=== PATIENT | male | born 1995 | race Caucasian/White ===

== ENCOUNTER 2021-09-11 10:59 | Emergency (ER) | payer OTHER ==
[~2021-09-11] VITALS: Ht 170.2 cm; Wt 74.8 kg
--- NOTE | 2021-09-11 11:32 | REP ---
INDICATION: TRAUMA COMPARISON: None. TECHNIQUE: Axial noncontrast images from the skull base to the vertex with coronal reformations. This CT examination was performed using the following dose reduction techniques: Automated exposure control, adjustment of mA and/or kv according to the patient's size, and use of iterative reconstruction technique. FINDINGS: The ventricles, sulci, and cisterns are normal in position and appearance. Tamayo-white differentiation is maintained. No acute intracranial hemorrhage, mass/mass effect, pathology or trauma/injury. No evidence for acute infarction. No extra-axial fluid collection. Calvarium is intact. Significant right-sided facial trauma including elements of subcutaneous emphysema extend into the masseter space and temporomandibular joint region along with small amount of fluid in the right maxillary sinus. There is a nondisplaced fracture along the orbital floor. IMPRESSION: 1. Right-sided facial trauma. 2. No intracranial pathology or trauma/injury. <Electronically signed by Kris Cunningham > 09/11/21 [id number]
--- NOTE | 2021-09-11 11:36 | REP ---
INDICATION: TRAUMA COMPARISON: None. TECHNIQUE: Axial noncontrast images from the skull base to the thoracic inlet with coronal and sagittal re-formations This CT examination was performed using the following dose reduction techniques: Automated exposure control, adjustment of mA and/or kv according to the patient's size, and use of iterative reconstruction technique. FINDINGS: Cervical vertebral bodies are intact and demonstrate normal alignment and lordosis. There is no evidence for acute fracture/compression injury or subluxation. The posterior elements and spinous processes are intact. The spinal canal is patent. There is extensive elements of gas along the right-side of the face and neck with extension into the right parapharyngeal/retropharyngeal space surrounding multiple muscles of mastication and the sternocleidomastoid muscle extending to the level of the thoracic inlet. IMPRESSION: 1. Normal appearance to the cervical spine without evidence for acute fracture/compression injury or subluxation. 2. Extensive amounts of subcutaneous gas throughout the right-side of the face/neck consistent with trauma. <Electronically signed by Kris Cunningham > 09/11/21 [id number]
--- NOTE | 2021-09-11 11:44 | REP ---
INDICATION: TRAUMA COMPARISON: None. TECHNIQUE: Axial noncontrast images through the facial bones to include the mandible with coronal and sagittal re-formations. FINDINGS: Comminuted multipartite nondisplaced fractures are identified involving the right orbital floor and anterior wall of the right maxillary sinus. Subtle minimally displaced fractures of the right nasal bone are also identified. There is a small amount of layering hemorrhagic fluid in the right maxillary sinus. There is extensive subcutaneous emphysema in the right periorbital space extending into the extraconal aspect of the right orbit causing mild right-sided proptosis. There is also extensive subcutaneous emphysema along the right-side of the face dissecting into the right masseter space surrounding masseter muscles, surrounding the right side of the mandible with extension medially into the right parapharyngeal and retropharyngeal space as well as dissecting caudally surrounding the right sternocleidomastoid muscle into the right thoracic inlet. IMPRESSION: 1. Comminuted multipartite nondisplaced fractures involving the right orbital floor and anterior wall of the maxillary sinus. Subtle fractures of the right nasal bone are also identified. 2. Extensive amounts of subcutaneous emphysema involving the right periorbital region, right side of the face, right masseter space with extension into the right parapharyngeal/retropharyngeal space and surrounding the mandible as well as extending caudally along the right-side of the neck towards the thoracic inlet. <Electronically signed by Kris Cunningham > 09/11/21 [id number]
--- NOTE | 2021-09-11 11:59 | REP ---
INDICATION: fall, r/o pneumothorax COMPARISON: None. TECHNIQUE: Portable AP view of the chest FINDINGS: The mediastinum and cardiac silhouette are within normal limits for portable technique. The lung judge are clear without acute consolidation, effusion, or pneumothorax. Skeletal structures are intact. IMPRESSION: No acute cardiopulmonary process appreciated. <Electronically signed by Kris Cunningham > 09/11/21 [id number]
[2021-09-11] MEDS ORDERED: AUGMENTIN 875 MG TAB PO ONE (12:45)
[2021-09-11] MEDS ORDERED: KETO10TAB PO (12:58)
[2021-09-11] MEDS ORDERED: AUGM875T28 PO (12:58)
[2021-09-11] MEDS ORDERED: DERMABOND TOPICAL SKIN ADHESIVE TOP ONE ×2 (13:00→13:45)
[2021-09-11 13:45] VITALS: BP 112/79
== END 2021-09-11 14:08 | disposition home or self-care (01) ==
LOC: M ED 10:59
DX: S02.31XA Fracture of orbital floor, right side, initial encounter for closed fracture (principal); S01.81XA Laceration without foreign body of other part of head, initial encounter; W10.8XXA Fall (on) (from) other stairs and steps, initial encounter; Y92.009 Unspecified place in unspecified non-institutional (private) residence as the place of occurrence of the external cause; Y93.9 Activity, unspecified; Y99.9 Unspecified external cause status

== ENCOUNTER 2024-01-14 20:07 | Inpatient (IN) | payer OTHER ==
[~2024-01-14] VITALS: Ht 172.7 cm; Wt 94.4 kg
[~2024-01-14 20:07] MED LIST: AUGM875T28 PO; KETO10TAB PO
[2024-01-14 21:13] LABS: HEMATOCRIT 49.8 % (42.0-52.0); HEMOGLOBIN 17.3 g/dl (13.5-17.5); MEAN CORPUSCULAR HEMOGLOBIN 32.5 pg (27.0-33.0); MEAN CORPUSCULAR HGB CONC 34.7 g/dl (32.0-36.5); MEAN CORPUSCULAR VOLUME 93.4 fl (80.0-96.0); PLATELET COUNT, AUTOMATED 304 10^3/uL (150-450); RED BLOOD COUNT 5.33 10^6/uL (4.30-6.10); WHITE BLOOD COUNT 15.4 10^3/uL (4.0-10.0)
[2024-01-14 21:40] LABS: ALBUMIN 4.4 G/DL (3.2-5.2); ALKALINE PHOSPHATASE 83 U/L (46-116); ALT/SGPT 45 U/L (7.0-40); AST/SGOT 22 U/L (<34); BILIRUBIN,DIRECT 0.1 MG/DL (<0.4); BILIRUBIN,TOTAL 0.5 MG/DL (0.3-1.2); BLOOD UREA NITROGEN 20 MG/DL (9-23); CALCIUM LEVEL 9.5 MG/DL (8.5-10.1); CARBON DIOXIDE LEVEL 22 MMOL/L (20-31); CHLORIDE LEVEL 103 MMOL/L (98-107); GLOMERULAR FILTRATION RATE > 60.0 (>60); GLUCOSE, FASTING 103 MG/DL (60-100); POTASSIUM SERUM 4.2 MMOL/L (3.5-5.1); SALICYLATE LEVEL < 3.0 MG/DL (<30); SODIUM LEVEL 140 MMOL/L (136-145); TOTAL PROTEIN 7.9 G/DL (5.7-8.2)
[2024-01-14 21:43] LABS: THYROID STIMULATING HORMONE 1.268 uIU/ML (0.55-4.78)
[2024-01-14 22:02] LABS: AMPHETAMINES LEVEL URINE NEGATIVE (NEGATIVE); BARBITURATES URINE NEGATIVE (NEGATIVE); BENZODIAZEPINES URINE NEGATIVE (NEGATIVE); CANNABINOIDS URINE NEGATIVE (NEGATIVE); COCAINE METABOLITE URINE NEGATIVE (NEGATIVE); METHADONE URINE NEGATIVE (NEGATIVE); OPIATES URINE NEGATIVE (NEGATIVE); PHENCYCLIDINE URINE NEGATIVE (NEGATIVE)
[2024-01-14] MEDS ORDERED: NEOSPORIN OINT 0.9 GM PKT TOP ONE (23:15)
[2024-01-14] MEDS ORDERED: MAALOX 30 ML SUSP *UDC PO PRN (23:20)
[2024-01-14] MEDS ORDERED: ACETAMINOPHEN TAB 650MG DOSE (2X325MG) PO PRN (23:20)
[2024-01-14] MEDS ORDERED: MOM 30ML SUSPENSION UDC PO PRN (23:20)
[2024-01-14] MEDS ORDERED: IBUPROFEN 400MG TAB PO PRN (23:20)
[2024-01-14] MEDS ORDERED: HOME MED LIST COMPLETE! XX SCH (23:35)
[2024-01-15 00:02] VITALS: BP 102/67; TEMP 97.8; O2SAT 96
[2024-01-15] MEDS: traZODone 50 MG TAB PO PRN (00:09)
[2024-01-15] MEDS: diphenhydrAMINE 25MG CAP PO PRN (01:40)
[2024-01-15 06:20] VITALS: BP 127/70; TEMP 99; O2SAT 96
[2024-01-15] MEDS: SERTRALINE HCL 25 MG TABLET PO SCH (10:11)
[2024-01-15 17:07] VITALS: BP 129/88; TEMP 97.4; O2SAT 99
[2024-01-16 06:21] VITALS: BP 119/74; TEMP 97.4; O2SAT 96
[2024-01-17 06:34] VITALS: BP 114/68; TEMP 97.8; O2SAT 97
[2024-01-17] MEDS ORDERED: DIPH-435 PO (08:50)
[2024-01-17] MEDS ORDERED: SERT25TA21 PO (08:50)
[2024-01-17] MEDS ORDERED: TRAZ-252 PO (08:51)
== END 2024-01-17 11:05 | disposition home or self-care (01) | DRG 881 ==
LOC: M ED 20:07 → M ED INP 23:17 → M PSY 23:45
PROVIDERS: ADMIT Student in an Organized Health Care Education/Training Program; ATTEND Student in an Organized Health Care Education/Training Program
DX: F32.9 Major depressive disorder, single episode, unspecified (principal); R45.851 Suicidal ideations; F41.9 Anxiety disorder, unspecified; F10.10 Alcohol abuse, uncomplicated

== ENCOUNTER 2024-07-17 14:30 | Inpatient (IN) | payer OTHER ==
[~2024-07-17] VITALS: Ht 175.3 cm; Wt 79.5 kg
[~2024-07-17 14:30] MED LIST changes: +DIPH-435 PO; +SERT25TA21 PO; +TRAZ-252 PO
[2024-07-17 15:12] LABS: HEMATOCRIT 46.9 % (42.0-52.0); HEMOGLOBIN 16.3 g/dl (13.5-17.5); MEAN CORPUSCULAR HGB CONC 34.8 g/dl (32.0-36.5); PLATELET COUNT, AUTOMATED 264 10^3/uL (150-450); WHITE BLOOD COUNT 10.4 10^3/uL (4.0-10.0)
[2024-07-17 15:41] LABS: AMPHETAMINES LEVEL URINE NEGATIVE (NEGATIVE)
[2024-07-17 15:42] LABS: BARBITURATES URINE NEGATIVE (NEGATIVE); BENZODIAZEPINES URINE NEGATIVE (NEGATIVE); CANNABINOIDS URINE NEGATIVE (NEGATIVE); COCAINE METABOLITE URINE NEGATIVE (NEGATIVE); METHADONE URINE NEGATIVE (NEGATIVE); OPIATES URINE NEGATIVE (NEGATIVE); PHENCYCLIDINE URINE NEGATIVE (NEGATIVE)
[2024-07-17 15:45] LABS: ALBUMIN 4.3 G/DL (3.2-5.2); ALKALINE PHOSPHATASE 71 U/L (46-116); ALT/SGPT 55 U/L (7.0-40); AST/SGOT 25 U/L (<34); BILIRUBIN,DIRECT < 0.1 MG/DL (<0.4); BILIRUBIN,TOTAL 0.3 MG/DL (0.3-1.2); BLOOD UREA NITROGEN 10 MG/DL (9-23); CALCIUM LEVEL 9.6 MG/DL (8.5-10.1); CARBON DIOXIDE LEVEL 26 MMOL/L (20-31); CHLORIDE LEVEL 103 MMOL/L (98-107); CREATININE FOR GFR 0.83 MG/DL (0.70-1.30); GLOMERULAR FILTRATION RATE > 60.0 (>60); GLUCOSE, FASTING 89 MG/DL (60-100); POTASSIUM SERUM 4.1 MMOL/L (3.5-5.1); SALICYLATE LEVEL < 3.0 MG/DL (<30); SODIUM LEVEL 138 MMOL/L (136-145); TOTAL PROTEIN 7.8 G/DL (5.7-8.2)
[2024-07-17 15:47] LABS: THYROID STIMULATING HORMONE 1.226 uIU/ML (0.55-4.78)
[2024-07-17] MEDS: THIAMINE 100 MG TAB PO SCH ×2 (18:00→18:24)
[2024-07-17] MEDS ORDERED: IBUP200C28 PO (18:16)
[2024-07-17] MEDS ORDERED: SERT50TA29 PO (18:16)
[2024-07-17] MEDS ORDERED: HOME MED LIST COMPLETE! XX SCH (18:20)
[2024-07-17] MEDS: MULTIVITAMINS/MINERALS THERAP 1 TAB PO SCH (18:23)
[2024-07-17] MEDS: FOLIC ACID 1MG TAB PO SCH (18:23)
[2024-07-17 19:43] LABS: ALBUMIN 3.9 G/DL (3.2-5.2); BILIRUBIN,DIRECT 0.1 MG/DL (<0.4); BILIRUBIN,TOTAL 0.4 MG/DL (0.3-1.2); TOTAL PROTEIN 7.2 G/DL (5.7-8.2)
[2024-07-17] MEDS ORDERED: IBUPROFEN 400MG TAB PO PRN (20:55)
[2024-07-17] MEDS ORDERED: MOM 30ML SUSPENSION UDC PO PRN (20:55)
[2024-07-17] MEDS ORDERED: MAALOX 30 ML SUSP *UDC PO PRN (20:55)
[2024-07-17] MEDS ORDERED: diphenhydrAMINE 25MG CAP PO PRN (20:55)
[2024-07-17] MEDS ORDERED: traZODone 50 MG TAB PO PRN (20:55)
[2024-07-17 23:15] VITALS: BP 117/69; TEMP 95; O2SAT 95
[2024-07-18 06:04] VITALS: BP 119/66; TEMP 98.7; O2SAT 100
[2024-07-18] MEDS ORDERED: MULTIVITAMINS/MINERALS THERAP 1 TAB PO SCH (09:00)
[2024-07-18] MEDS ORDERED: FOLIC ACID 1MG TAB PO SCH (09:00)
[2024-07-18] MEDS: SERTRALINE HCL 50 MG TAB PO SCH (13:58)
[2024-07-18] MEDS: NICOTINE 21MG/24HR 1 EA TRANSDERMAL TD SCH (14:27)
[2024-07-18 17:11] VITALS: BP 153/88; TEMP 98.1; O2SAT 100
[2024-07-18 18:12] VITALS: BP 138/89
[2024-07-19] MEDS ORDERED: UNRESOLVED CLARIFICATION ENTRY XX SCH (00:01)
[2024-07-19 06:39] VITALS: BP 120/57; TEMP 98.3; O2SAT 96
[2024-07-19] MEDS: ACETAMINOPHEN TAB 650MG DOSE (2X325MG) PO PRN (12:50)
== END 2024-07-19 13:00 | disposition home or self-care (01) | DRG 881 ==
LOC: M ED 14:30 → M ED INP 20:54 → M PSY 22:24
PROVIDERS: ADMIT Psychiatry & Neurology Psychiatry; ATTEND Psychiatry & Neurology Child & Adolescent Psychiatry
DX: F32.A Depression, unspecified (principal); R45.851 Suicidal ideations; F10.10 Alcohol abuse, uncomplicated; F17.200 Nicotine dependence, unspecified, uncomplicated; G47.00 Insomnia, unspecified; M54.59 Other low back pain; Z59.89 Other problems related to housing and economic circumstances

== ENCOUNTER → 2024-11-11 | Outpatient (REF) ==
[~2024-11-11] MED LIST changes: +IBUP200C28 PO; +SERT50TA29 PO
== END ==
LOC: M PLAIMG 10:07
PROVIDERS: ATTEND Internal Medicine
DX: Z01.89 Encounter for other specified special examinations (principal)

== ENCOUNTER 2025-03-17 13:15 | Emergency (ER) | payer OTHER ==
[~2025-03-17] VITALS: Ht 175.3 cm; Wt 88.0 kg
[2025-03-17 15:25] LABS: BASO # 0.1 10^3/uL (0.0-0.2); BASO % 0.8 % (0.0-1.0); EOS % 0.2 % (0.0-3.0); HEMATOCRIT 46.5 % (42.0-52.0); HEMOGLOBIN 15.9 g/dl (13.5-17.5); LYMPH # 1.9 10^3/uL (1.5-5.0); LYMPH % 18.9 % (24.0-44.0); MEAN CORPUSCULAR HEMOGLOBIN 31.9 pg (27.0-33.0); MEAN CORPUSCULAR HGB CONC 34.2 g/dl (32.0-36.5); MEAN CORPUSCULAR VOLUME 93.2 fl (80.0-96.0); MONO # 0.7 10^3/uL (0.0-0.8); MONO % 7.1 % (2.0-8.0); NEUTROPHILS # 7.2 10^3/uL (1.5-8.5); NEUTROPHILS % 72.4 % (36.0-66.0); PLATELET COUNT, AUTOMATED 243 10^3/uL (150-450); RED BLOOD COUNT 4.99 10^6/uL (4.30-6.10)
[2025-03-17] MEDS: KETOROLAC 30 MG/ML 1ML VIAL IV ONE (15:29)
[2025-03-17] MEDS: METOCLOPRAMIDE INJ 10MG/2ML VIAL IV ONE (15:29)
[2025-03-17] MEDS: NS (Normal Saline) 0.9% 1,000 ML IV ONE (15:29)
[2025-03-17] MEDS: ACETAMINOPHEN *IV* 1,000 MG in IV 1 EA IV ONE (15:30)
[2025-03-17 15:46] LABS: BLOOD UREA NITROGEN 12 MG/DL (9-23); CALCIUM LEVEL 9.7 MG/DL (8.5-10.1); CARBON DIOXIDE LEVEL 31 MMOL/L (20-31); CHLORIDE LEVEL 101 MMOL/L (98-107); CREATININE FOR GFR 0.89 MG/DL (0.70-1.30); GLOMERULAR FILTRATION RATE > 90.0 (>60); GLUCOSE, FASTING 85 MG/DL (60-100); POTASSIUM SERUM 4.4 MMOL/L (3.5-5.1); SODIUM LEVEL 139 MMOL/L (136-145)
[2025-03-17 17:02] VITALS: BP 112/68; TEMP 96.6; O2SAT 100
== END 2025-03-17 17:05 | disposition home or self-care (01) ==
LOC: M ED 13:15
DX: R51.9 Headache, unspecified (principal); Z91.011 Allergy to milk products; Z79.1 Long term (current) use of non-steroidal anti-inflammatories (NSAID); Z79.899 Other long term (current) drug therapy
CPT/HCPCS: 70450; 80048; 85025; 96365; 96366; 96375; 99284; J0131; J1885; J2765